=== PATIENT | female | born 1960 | race Hispanic/Latino ===

== ENCOUNTER 2019-03-22 06:21 | Day surgery (SDC) | payer OTHER ==
[~2019-03-22] VITALS: Ht 152.4 cm; Wt 99.8 kg
[~2019-03-22 06:21] MED LIST: SODIUM CHLORIDE 0.9% 1000ML 1,000 ML IV ONE
[2019-03-22 07:24] LABS: BASOPHILS % (AUTO) 0.6 % (0.0-5.0); EOSINOPHILS % (AUTO) 1.7 % (0.0-8.0); LYMPHOCYTES % (AUTO) 41.6 % (21.0-51.0); MEAN CORPUSCULAR HEMOGLOBIN 29.1 pg (27.0-33.0); MEAN CORPUSCULAR HGB CONC 33.6 g/dL (32.0-36.0); MEAN CORPUSCULAR VOLUME 86.5 fL (79-99); MONOCYTES % (AUTO) 6.6 % (3.0-13.0); NEUTROPHILS % (AUTO) 49.5 % (40.0-77.0); PLATELET COUNT (AUTO) 202 K/uL (130-400); RED BLOOD CELL COUNT(AUTO) 5.09 MIL/uL (4.00-5.50); RED CELL DISTRIBUTION WIDTH 13.6 % (11.0-15.5); WHITE BLOOD COUNT (AUTO) 5.4 K/uL (4.8-10.8)
[2019-03-22 07:37] LABS: INR 1.08 (0.85-1.15); PROTHROMBIN TIME 11.1 SEC (9.6-11.6)
[2019-03-22 07:45] VITALS: BP 121/71
[2019-03-22] MEDS ORDERED: TOPIRAMATE PO (08:00)
[2019-03-22] MEDS ORDERED: VITAMIN D (08:00)
[2019-03-22] MEDS ORDERED: LOSA50TA64 PO (08:00)
[2019-03-22] MEDS ORDERED: IBUP-2070 PO (08:00)
[2019-03-22] MEDS ORDERED: GLYCOPYRROLATE 0.2 MG/ML 5 ML VIAL ONE (08:05)
[2019-03-22] MEDS ORDERED: FENTANYL CITRATE PF 50 MCG/1 ML 2ML VIAL ONE (08:05)
[2019-03-22] MEDS ORDERED: PROPOFOL 10 MG/ML 20ML VIAL IV ONE ×2 (08:05→08:24)
[2019-03-22 08:35] VITALS: BP 93/53
[2019-03-22 08:40] VITALS: BP 109/56
[2019-03-22 08:46] VITALS: BP 124/85
== END 2019-03-22 08:58 | disposition home or self-care (01) ==
LOC: ENDO 06:21 → DAH 06:21 → ENDO 08:58
PROVIDERS: ATTEND Internal Medicine
DX: R93.3 Abnormal findings on diagnostic imaging of other parts of digestive tract (principal); K86.89 Other specified diseases of pancreas; K29.70 Gastritis, unspecified, without bleeding; B96.81 Helicobacter pylori [H. pylori] as the cause of diseases classified elsewhere; I10 Essential (primary) hypertension; K21.9 Gastro-esophageal reflux disease without esophagitis; E66.01 Morbid (severe) obesity due to excess calories; Z88.8 Allergy status to other drugs, medicaments and biological substances; Z72.89 Other problems related to lifestyle; Z79.899 Other long term (current) drug therapy; Z98.41 Cataract extraction status, right eye; Z90.49 Acquired absence of other specified parts of digestive tract; Z68.41 Body mass index [BMI] 40.0-44.9, adult; Z98.890 Other specified postprocedural states; Z82.49 Family history of ischemic heart disease and other diseases of the circulatory system
CPT/HCPCS: 36415; 43238; 43239; 85025; 85610; 88173; 88305; A4215 ×2; A4221; A4222; A4223; A4606; A4615; A4663; J2704 ×2; J3010; J3490; J7030